=== PATIENT | female | born 1935 | race African-American/Black ===

== ENCOUNTER 2017-08-05 11:20 | Emergency (ER) | payer MEDICARE, OTHER ==
[~2017-08-05] VITALS: Ht 160 cm; Wt 82.0 kg
[~2017-08-05 11:20] MED LIST: AMLODIPINE; HYDROCHLOROTHIAZIDE
[2017-08-05 14:05] VITALS: BP 179/86
[2017-08-05 15:50] LABS: BASOPHILS % 0.5 % (0.0-2.0); EOSINOPHILS % 0.5 % (0.0-5.0); HEMATOCRIT. 40.1 % (36.0-48.0); HEMOGLOBIN. 13.6 g/dL (12.0-16.0); LYMPHOCYTES % 34.1 % (20.0-50.0); MEAN CORPUSCULAR VOLUME 88.6 fL (81.0-99.0); MEAN PLATELET VOLUME 9.3 fl (7.4-10.4); MONOCYTES % 19.4 % (2.0-8.0); NEUTROPHILS % 45.5 % (40.0-76.0); PLATELET 176 x1000/uL (130-400); RED BLOOD CELL COUNT 4.52 mill/uL (4.2-5.4); RED CELL DISTRIBUTION WIDTH 14.4 % (11.6-14.6)
== END 2017-08-05 16:31 | disposition left against medical advice (07) ==
LOC: ER 12:01
DX: R05 Cough (principal); R09.89 Other specified symptoms and signs involving the circulatory and respiratory systems; I10 Essential (primary) hypertension; D72.819 Decreased white blood cell count, unspecified; Z88.0 Allergy status to penicillin; Z90.710 Acquired absence of both cervix and uterus
CPT/HCPCS: 36415; 80048; 85025; 87804; 99284